=== PATIENT | male | born 1955 | race Caucasian/White ===

== ENCOUNTER → 2022-11-16 | Outpatient (CLI) | payer OTHER ==
--- NOTE | 2022-11-17 09:59 | DIREP ---
PROCEDURE:XRAY SHOULDER MIN 2 VWS-LT COMPARISON:None. INDICATIONS:M25.512 PAIN IN LEFT SHOULDER FINDINGS: BONES:Normal. JOINTS:Moderate degenerative changes are seen in the acromioclavicular joint and mild degenerative changes of the glenohumeral joint.. SOFT TISSUES:Normal. OTHER:Normal. CONCLUSION:Moderate degenerative changes are demonstrated in the acromioclavicular joint and mild degenerative changes of the glenohumeral joint.. No acute bony abnormality is seen. Dictated by: Joel Grady M.D. on 11/17/2022 at 09:57 AM
== END | disposition home or self-care (01) ==
LOC: RAD 15:47
PROVIDERS: ATTEND Nurse Practitioner Family
DX: M19.012 Primary osteoarthritis, left shoulder (principal)
CPT/HCPCS: 73030-LT